=== PATIENT | female | born 1970 | race Caucasian/White ===

== ENCOUNTER 2019-05-20 07:46 | Day surgery (SDC) | payer BC ==
[2019-05-20] MEDS ORDERED: Lactated Ringers 1,000 ML IV SCH (08:45)
[2019-05-20] MEDS ORDERED: Midazolam 1 MG/ML 2 ML SDV ONE (08:54)
[2019-05-20] MEDS ORDERED: fentaNYL 100 MCG/2 ML SDV ONE (08:54)
[2019-05-20] MEDS ORDERED: Propofol 200 MG/20 ML SDV ONE (08:54)
[2019-05-20 10:35] VITALS: BP 126/88
--- NOTE | 2019-05-21 08:45 | OR ---
DATE OF PROCEDURE: 05/20/2019 PREOPERATIVE DIAGNOSIS: Colon cancer screening. POSTOPERATIVE DIAGNOSIS: Diverticulosis. PROCEDURE: Colonoscopy to the cecum. SURGEON: Dm Valentin MD ANESTHESIA: IV anesthesia with monitored anesthesia care. INDICATION: This 48-year-old white female is referred for a colonoscopy for colon cancer screening. She has never had a colonoscopic exam. I counseled her for the procedure, including risks and alternatives, and she gave her informed consent to proceed. DESCRIPTION OF PROCEDURE: The patient was placed in the left lateral decubitus position. IV anesthesia was administered by the Anesthesia Service. Time-out was held. A rectal exam was performed, which was unremarkable. The flexible video Olympus colonoscope was introduced through her anus, up her rectum, out her colon all the way to the cecum. Once the cecum was reached, the scope was slowly withdrawn, examining the mucosa throughout. No neoplastic lesions were seen. We did see a few scattered both right and left-sided diverticula. There was no bleeding or inflammation associated with them. The scope was retroflexed in the rectum with the distal rectum appearing unremarkable. The scope was straightened and removed. She tolerated the procedure well. Dm Valentin MD /[id number]
== END 2019-05-20 10:39 | disposition home or self-care (01) ==
LOC: JP.SDS 07:46
PROVIDERS: ATTEND Surgery
DX: Z12.11 Encounter for screening for malignant neoplasm of colon (principal); K57.30 Diverticulosis of large intestine without perforation or abscess without bleeding; I10 Essential (primary) hypertension; E78.5 Hyperlipidemia, unspecified
CPT/HCPCS: J2250; J2704; J3010; J7120